=== PATIENT | female | born 1960 | race Caucasian/White ===

== ENCOUNTER 2021-01-25 11:24 | Emergency (ER) | payer OTHER, SELFPAY ==
--- NOTE | ~2021-01-25 | XR_ITS ---
XR wrist RT min 3V DATE: 01/25/2021 11:50 INDICATION: Fall. Pain and swelling. TECHNIQUE: 4 views COMPARISON: None FINDINGS: There is a nondisplaced comminuted intra-articular fracture of the distal radius with intra -articular fracture lines at the lateral and midportion of the radius. There is no angulation. There is dorsal soft tissue swelling of the wrist. Radiocarpal alignment is preserved. There is mild osteoarthritis at the first carpometacarpal joint. IMPRESSION: Virtually nondisplaced comminuted intra-articular fracture of the distal radius Reviewed, dictated and finalized at location A. IMPRESSION: Virtually nondisplaced comminuted intra-articular fracture of the d istal radius
--- NOTE | 2021-01-25 11:29 | ED.UPPEXIN ---
HPI - Extremity Injury (Upper) General Chief Complaint: Extremity Injury, Upper Stated Complaint: right wrist injury Time Seen by Provider: 01/25/21 11:29 Source: patient and RN notes reviewed History of Present Illness HPI narrative: Patient is a 60-year-old female who presents the urgent care with complaints of a right wrist injury. Patient states that she fell yesterday while trying to carry a crib box and landed on the right wrist. Patient is right-hand dominant. Denies of any other injuries from the fall. Denies of hitting her head or any loss of consciousness. Patient states that she has taken ibuprofen for the pain as well as iced the wrist. No other acute complaints. No acute distress noted. Patient aware of the plan of care. Some parts of this dictation were generated by voice recognition software and may contain typographical and/or grammatical inaccuracies. Related Data Home Medications Medication Instructions Recorded Confirmed citalopram 40 mg PO DAILY 01/25/21 01/25/21 losartan-hydrochlorothiazide 1 tablet PO DAILY 01/25/21 01/25/21 omeprazole 40 mg PO DAILY 01/25/21 01/25/21 oxybutynin chloride 10 mg PO DAILY 01/25/21 01/25/21 pravastatin 20 mg PO DAILY 01/25/21 01/25/21 Allergies Allergy/AdvReac Type Severity Reaction Status Date / Time adhesive Allergy Unknown Rash Unverified 01/25/21 11:41 Review of Systems Review of Systems: Narrative: CONSTITUTIONAL: Denies fever, chills, or sweats. EYES: Denies visual changes, redness, or discharge. ENT: Denies rhinorrhea, congestion, sore throat, or otalgia. CARDIOVASCULAR: Denies chest pain, palpitations, or edema. RESPIRATORY: Denies cough or dyspnea. GASTROINTESTINAL: Denies abdominal pain, nausea, vomiting, or diarrhea. GENITOURINARY: Denies dysuria or hematuria. SKIN: Denies rash or itching. MUSCULOSKELETAL: Reports of right wrist swelling and pain NEUROLOGIC: Denies headache, numbness, or weakness. All other systems reviewed are negative, except as documented in HPI. PMFSH Comments At the time of my signature, I reviewed and agree with the nursing past medical, surgical, social, and family history. There is no relevant family history pertinent to the patient complaint. Exam Narrative: Exam Narrative: GENERAL: This is a well-nourished, well-developed patient, in no apparent distress. HEAD: normocephalic, atraumatic. EYES: PERRL. Sclera clear/white. Vision is grossly intact. EARS: External ears normal NOSE: External nose normal with no obvious nasal discharge, nares without redness, no rhinorrhea. THROAT: Mucous membranes moist NECK: Neck supple SKIN: warm, intact with no suspicious lesions or rash, good texture and turgor. NEURO: awake, alert, and oriented to person, place and time. There were no obvious focal neurologic abnormalities. EXTREMITIES: Moderate edema noted to the right radial aspect of the right upper extremity. Positive strong right radial pulse with capillary refill less than 2 seconds. Mild ecchymosis noted to the distal right radius. Obvious deformity noted. Range of motion not tested due to deformity and pain. Course Vital Signs Vital signs: Vital Signs Temperature 98.6 F 01/25/21 11:32 Pulse Rate 65 01/25/21 11:32 Respiratory Rate 16 01/25/21 11:32 Blood Pressure 187/80 H 01/25/21 11:32 Pulse Oximetry 98 01/25/21 11:32 Temperature 98.6 F 01/25/21 11:43 Pulse Rate 65 01/25/21 11:43 Respiratory Rate 16 01/25/21 11:43 Blood Pressure 187/80 H 01/25/21 11:43 Pulse Oximetry 98 01/25/21 11:43 Reviewed-patient is informed that they may have pre-hypertension or hypertension based on a blood pressure reading in the department. I recommend the patient call the primary care provider listed on their discharge instructions or a physician of their choice this week to arrange follow-up for further evaluation of possible pre-hypertension or hypertension. MDM - Extremity Injury (Upper) MDM Narrative Medic
[2021-01-25 11:32] VITALS: BP 187/80; PULSE 65; RESP 16; TEMP 37; O2SAT 98
[2021-01-25 11:43] VITALS: BP 187/80; PULSE 65; RESP 16; TEMP 37; O2SAT 98
== END 2021-01-25 12:28 | disposition home or self-care (01) ==
PROVIDERS: Emergency Provider Nurse Practitioner Family; PCP Internal Medicine
DX: S52.571A Other intraarticular fracture of lower end of right radius, initial encounter for closed fracture (principal); W19.XXXA Unspecified fall, initial encounter; E78.00 Pure hypercholesterolemia, unspecified; I10 Essential (primary) hypertension; K21.9 Gastro-esophageal reflux disease without esophagitis; F32.9 Major depressive disorder, single episode, unspecified
CPT/HCPCS: 29125; 73110; 99204; A4565; G0463

== ENCOUNTER 2023-10-11 15:14 | Emergency (ER) | payer OTHER, SELFPAY ==
--- NOTE | ~2023-10-11 | XR_ITS ---
EXAMINATION: XR chest 2V Exam Date/Time: 10/11/2023 15:50 EXTRACTION OPERATOR HISTORY: cough Comparison: None. RESULT: Lines, tubes, and devices: None. Lungs and pleura: Linear bibasilar opacities. Mild bilateral posterior costophrenic angle blunting. No focal consolidation or pneumothorax. Cardiomediastinal silhouette: Unremarkable. Other: No acute osseous or upper abdominal finding. IMPRESSION: Bibasilar atelectasis/scar. Trace bilateral pleural effusions versus chronic pleural blunting. Reviewed, dictated and finalized at location K. ACTION OPERATOR IMPRESSION: Bibasilar atelectasis/scar. Trace bilateral pleural effusions versus chronic pl eural blunting.
[2023-10-11 15:24] VITALS: BP 160/87; PULSE 82; RESP 16; TEMP 36.7; O2SAT 95
--- NOTE | 2023-10-11 15:57 | ED.GENADULT ---
HPI - General Adult General Chief complaint: Upper Respiratory Infection Stated complaint: cough/chest congestion Source: patient Mode of arrival: ambulatory Limitations: no limitations History of Present Illness HPI narrative: Patient presents for evaluation of cough for the last 3 days. Cough is nonproductive. She denies shortness of breath. She has some pleuritic chest pain. No fever, chills nausea, vomiting, diarrhea. She initially had a sore throat but that has since improved. She has been taking Mucinex DM without considerable improvement thereafter. No specific sick contacts to her knowledge. She reports a history of pneumonia. She has a history of breast cancer status post mastectomy bilaterally and currently on anastrozole therapy. She does vape from time to time. Related Data Home Medications Medication Instructions Recorded Confirmed citalopram 40 mg tablet 40 mg PO DAILY 01/25/21 01/29/21 losartan 100 1 tablet PO DAILY 01/25/21 01/29/21 mg-hydrochlorothiazide 12.5 mg tablet omeprazole 40 mg capsule,delayed 40 mg PO DAILY 01/25/21 01/29/21 release oxybutynin chloride 10 mg 10 mg PO DAILY 01/25/21 01/29/21 tablet,extended release 24 hr pravastatin 20 mg tablet 20 mg PO DAILY 01/25/21 01/29/21 anastrozole 1 mg tablet mg 10/11/23 Allergies Allergy/AdvReac Type Severity Reaction Status Date / Time adhesive Allergy Unknown Rash Unverified 01/25/21 11:41 Review of Systems Review of Systems: CONSTITUTIONAL: Denies fever, chills, or sweats. EYES: Denies visual changes, redness, or discharge. ENT: Denies rhinorrhea, congestion, sore throat, or otalgia. CARDIOVASCULAR: Reports pleuritic chest pain. Denies chest pain otherwise. Denies palpitations, or edema. RESPIRATORY: Reports cough. Denies shortness of breath. GASTROINTESTINAL: Denies abdominal pain, nausea, vomiting, or diarrhea. GENITOURINARY: Denies dysuria or hematuria. SKIN: Denies rash or itching. MUSCULOSKELETAL: Denies back pain, joint pain, or myalgia. NEUROLOGIC: Denies headache, numbness, dizziness, or weakness. PSYCHIATRIC: Denies anxiety or depression. [facility] Past Medical History Medical History Fracture of distal end of radius History of breast cancer Hyperlipidemia Hypertension Surgical History Surgical History History of mastectomy Family History Family History Mother Family history non-contributory Social History Social History Smoking status: Current some day smoker Tobacco type: e-cigarettes/vaping Substance use: never Living arrangements: with family Gender identity (if verbalized by the patient): Female Spiritual care concerns: No Exam Narrative: GENERAL: Appears acutely ill but nontoxic. Well-nourished, and in no acute distress. HEAD: Normocephalic, atraumatic. EYES: PERRLA and EOMI. ENT: Nares clear, no rhinorrhea or epistaxis. Mucous membranes moist. Oropharynx without tonsillar hypertrophy exudate or other lesions. Bilateral TMs pearly calvo nonbulging NECK: Supple. No adenopathy or masses. No carotid bruits or JVD CHEST: Wheezing and rales noted in bilateral lung rodriguez posteriorly. Cough present on exam. HEART: Regular rate and rhythm. No murmur heard. Normal peripheral pulses. ABDOMEN: Soft, nontender, nondistended, normal active bowel sounds. EXTREMITIES: Normal range of motion. No edema. SKIN: Warm, dry, no rash. NEURO: No focal deficits. Alert and oriented x3. PSYCH: Normal mood and affect. Course Course Emergency Course: This is a 63-year-old female who presented for evaluation of cough. COVID and influenza were negative. With the chest x-ray not read is pneumonia, I have strong clinical concern that she does. Will treat wi
[2023-10-11] MEDS: methylPREDNISolone SOD SUCC 125 MG VIAL IM (16:00)
[2023-10-11] MEDS: ALBUTEROL SULFATE NEB 2.5 MG/3 ML INH INHALATION (16:01)
[2023-10-11] MEDS: IPRATROPIUM BR 0.02% INH SOLN 0.5 MG/2.5 ML VIAL INHALATION (16:01)
== END 2023-10-11 16:57 | disposition home or self-care (01) ==
PROVIDERS: Emergency Provider Nurse Practitioner; PCP Internal Medicine
DX: R05.9 Cough, unspecified (principal); R07.81 Pleurodynia; J98.11 Atelectasis; F17.290 Nicotine dependence, other tobacco product, uncomplicated; E78.5 Hyperlipidemia, unspecified; I10 Essential (primary) hypertension; Z85.3 Personal history of malignant neoplasm of breast; Z90.13 Acquired absence of bilateral breasts and nipples
CPT/HCPCS: 71046; 87426; 87804; 94640; 96372; 99213; G0463; J2930